=== PATIENT | male | born 1995 | race Caucasian/White ===

== ENCOUNTER 2019-04-16 07:13 | Day surgery (SDC) | payer OTHER ==
[2019-04-15 16:33] LABS: Absolute Lymphocytes (CBC) 1.1 K/uL (0.7-4.9); Basophils % 0.3 % (0-1.3); Hematocrit 46.2 % (39.6-49.0); Lymphocytes % 28.1 % (15.3-44.8); MPV 11.1 fL (7.6-11.3)
[2019-04-16] MEDS ORDERED: FENTANYL CITR 100 MCG/2 ML ONE (07:37)
[2019-04-16] MEDS ORDERED: PROPOFOL 200 MG/20 ML VIAL IV ONE (07:39)
[2019-04-16] MEDS ORDERED: MIDAZOLAM HCL 2 MG/2 ML INJ ONE (07:39)
[2019-04-16] MEDS ORDERED: LIDOCAINE 1% MPF 2 ML AMPULE ONE (07:40)
[2019-04-16] MEDS ORDERED: CEFOXITIN/SWI 1gm 1 GM/10 ML SYR ONE (07:42)
[2019-04-16] MEDS ORDERED: Ringers Lactate 1,000 ML IV ONE (07:42)
[2019-04-16] MEDS ORDERED: ONDANSETRON 4 MG/2 ML VIAL ONE (08:44)
[2019-04-16] MEDS: HYDROMORPHONE HCL 1 MG/ML INJ ONE ×2 (09:25→09:30)
[2019-04-16] MEDS ORDERED: HYDROCODONE/APAP 7.5/325 MG TAB ONE (10:37)
--- NOTE | 2019-04-16 21:20 | OP ---
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 Procedure: Exam under anesthesia, rigid proctoscopy, and fistulotomy. Estimated Blood Loss: Minimal. Specimen: Fistulous tract contents. Findings: As above. Anesthesia: General. Complications: None. Patient tolerated the procedure in stable condition, taken to Recovery in good general condition. Procedure In Detail: Patient was brought to the OR and placed in supine position. General anesthesi a begun. Patient was placed in lithotomy position, prepped and draped in usual sterile fashion, and then exam under anesthesia revealed a small opening at the 5 o'clock position, probe introduced, and came out in the posterior midline in the anal canal. This fistulous tract was opened with cautery an d then the contents of the fistulous tract were debrided with a curette and some of it was excised wi th sharp dissection until good healthy tissue was obtained, and then 4-0 chromic was used to approxim ate the skin defect and a small opening was left for drainage purposes. Rigid proctoscopy did not re veal any other evidence of disease. Marcaine 0.5% was infiltrated for postop pain control and then s terile dressing was applied. Patient was awakened and taken to Recovery in good general condition. Discharge Note: Patient will go to Day Surgery and home when stable. Disposition: Home. Condition: Stable. Discharge Instructions: Resume home medications and diet. Activity as tolerated. No heavy lifting. Remove outer dressing in a.m., sitz baths q.i.d., high-fiber diet. Tylenol No. 3 one tablet p.o. q .4 p.r.n. pain, Colace 100 mg p.o. b.i.d., Dr. Phillips-HC 2.5% to anus b.i.d. and p.r.n., Metamucil 1 tablespoon p.o. t.i.d. /MODL Voice ID: [id number] Report ID: [id number]
== END 2019-04-16 11:25 | disposition home or self-care (01) ==
LOC: OR 07:13
PROVIDERS: ATTEND Surgery
PROC: 0DJD8ZZ Inspection of Lower Intestinal Tract, Via Natural or Artificial Opening Endoscopic (ICD-10-PCS; 2019-04-16)
PROC: 0D8R0ZZ Division of Anal Sphincter, Open Approach (ICD-10-PCS; principal; 2019-04-16 08:00)
DX: K60.3 Anal fistula (principal)
CPT/HCPCS: 46270; 45300; 85025; 36415; 88304; J2704; J2250; J3010; J2001; J1170; J2405